=== PATIENT | male | born 1940 | race Caucasian/White ===

== ENCOUNTER 2016-08-30 10:57 | Emergency (ER) | payer MEDICARE, BC ==
[~2016-08-30] VITALS: Ht 172.7 cm; Wt 104.5 kg
[~2016-08-30 10:57] MED LIST: ASPIRIN 32325 MG/TAB PO; ASPIRIN E.C.325 MG PO; BENICAR HCT 12.1 TAB PO; CIPRO 500MG TA500 MG PO; HUMALOG100 U/ML SC; LANTUS100 U/ML; LIPITOR20 MG PO; LISINOPRIL20 MG PO; NOVOLOG 100U100 U/M1 SC; PERCOCET 325 MG1 TA2 PO; PRINIVIL20 MG PO; TOPROL XL 50MG50 MG PO; TOPROL XL50 MG PO; XALATAN EYE DROPS OU; travatan
[2016-08-30 11:02] VITALS: TEMP 98.2
[2016-08-30 11:52] LABS: BASO % 0.3 % (0.0-2.0); EOS # 0.2 (0.0-0.7); GRAN # 4.8 (1.4-6.5); GRAN % 69.6 % (42.2-75.2); HEMATOCRIT 44.1 % (42.0-52.0); HEMOGLOBIN 15.4 g/dl (13.5-18.0); LYMPH # 1.2 (1.2-3.4); LYMPH % 17.4 % (20.0-51.0); MEAN CELL VOLUME 90 fl (80.0-100.0); MEAN CORPUSCULAR HEMOGLOBIN 31 pg (27.0-31.0); MEAN CORPUSCULAR HGB CONC 35 g/dl (33.0-37.0); MEAN PLATELET VOLUME 9.8 fl (7.4-10.4); MONO # 0.7 (0.1-0.6); MONO % 9.3 % (1.7-9.3); PLATELET COUNT 151 K/mm3 (130-400); RED BLOOD COUNT 4.92 M/mm3 (4.20-5.60); REDCELL DISTRIBUTION WIDTH-CV 12.9 % (11.5-14.5)
[2016-08-30 12:01] LABS: PH 5 (5-8); SQUAMOUS EPITHELIAL None Seen /hpf; URINE APPEARANCE Hazy; URINE BACTERIA None Seen /hpf; URINE BILIRUBIN Negative (NEGATIVE); URINE BLOOD 2+ (NEGATIVE); URINE COLOR Yellow; URINE GLUCOSE 1+ (NEGATIVE); URINE KETONE Negative (NEGATIVE); URINE RBC >50 /hpf; URINE UROBILINOGEN Negative (NEGATIVE); URINE WBC 20-50 /hpf
[2016-08-30 12:13] LABS: ADJUSTED CALCIUM 9.8 mg/dL (8.4-10.2); ALANINE AMINOTRANSFERASE 30 U/L (21-72); ALBUMIN 4.1 gm/dL (3.5-5.0); ALKALINE PHOSPHATASE 70 U/L (50-136); ANION GAP 12 mmol/L (7-16); BILIRUBIN,TOTAL 1.3 mg/dL (0.0-1.0); BLOOD UREA NITROGEN 17 mg/dL (9-20); CALCIUM 9.9 mg/dL (8.4-10.2); CARBON DIOXIDE 24 mmol/L (22-30); CHLORIDE 102 mmol/L (98-107); CREATININE, serum 0.95 mg/dL (0.66-1.25); GLUCOSE 157 mg/dL (74-106); LIPASE 84 U/L (23-300); POTASSIUM 4.2 mmol/L (3.4-5.0); SODIUM 139 mmol/L (137-145); TOTAL PROTEIN 7.2 gm/dL (6.4-8.2)
[2016-08-30 12:18] LABS: C-REACTIVE PROTEIN < 0.5 mg/dL (0.0-0.9)
[2016-08-30] MEDS ORDERED: OMNICEF 300MG300 MG PO (13:58)
[2016-08-30] MEDS ORDERED: FLOMAX 0.40.4 MG/CAP PO (13:58)
[2016-08-30] MEDS ORDERED: PERCOCET 325 MG1 TA2 PO (13:58)
[2016-08-30 14:32] VITALS: BP 133/79; PULSE 72
== END 2016-08-30 14:35 | disposition home or self-care (01) ==
LOC: COL.ER 10:57
PROVIDERS: Physician Assistant
DX: N13.2 Hydronephrosis with renal and ureteral calculous obstruction (principal); Z87.442 Personal history of urinary calculi; R11.0 Nausea; E11.9 Type 2 diabetes mellitus without complications; Z79.4 Long term (current) use of insulin; I10 Essential (primary) hypertension
CPT/HCPCS: J0696; J2270; J2550; J7040

== ENCOUNTER → 2016-10-15 | Outpatient (CLI) | payer MEDICARE, BC ==
[~2016-10-15] MED LIST changes: +FLOMAX 0.40.4 MG/CAP PO; +OMNICEF 300MG300 MG PO
== END ==
LOC: COL.RAD 14:14
DX: N20.2 Calculus of kidney with calculus of ureter (principal); K44.9 Diaphragmatic hernia without obstruction or gangrene

== ENCOUNTER 2017-06-26 06:59 | Day surgery (SDC) | payer MEDICARE, BC ==
[2017-06-26] VITALS (10 sets, daily range): BP systolic 97–126; BP diastolic 55–94; PULSE 52–72; TEMP 98.2
[~2017-06-26] VITALS: Ht 170.2 cm; Wt 105.3 kg
[~2017-06-26 06:59] MED LIST changes: +ALDACTONE50 MG PO; +ASPIRIN E.C. 8181 MG PO; +COZAAR100 MG PO; +ELIQUIS 5MG PO; +HYZAAR 12.5 MG-1 TAB PO; +LANTUS100 U/ML SQ; +LASIX 20MG TABL20 MG PO; +LASIX 40MG TABL40 MG PO; +LIPITOR 40MG TA40 MG PO; +NOVOLOG 100U100 U/M1 SQ; +VITAMIN D31000 I1 PO; +ZYLOPRIM 300MG300 MG PO
[2017-06-26 07:27] LABS: HEMATOCRIT 44.4 % (42.0-52.0); HEMOGLOBIN 15.4 g/dl (13.5-18.0); MEAN CELL VOLUME 90 fl (80.0-100.0); MEAN CORPUSCULAR HEMOGLOBIN 31 pg (27.0-31.0); MEAN CORPUSCULAR HGB CONC 35 g/dl (33.0-37.0); MEAN PLATELET VOLUME 10.4 fl (7.4-10.4); PLATELET COUNT 157 K/mm3 (130-400); RED BLOOD COUNT 4.96 M/mm3 (4.20-5.60); REDCELL DISTRIBUTION WIDTH-CV 14.6 % (11.5-14.5)
[2017-06-26 07:33] LABS: INR 1.4 (0.8-3.0); PROTHROMBIN TIME 16.1 SECONDS (9.7-12.8)
[2017-06-26 07:43] LABS: CALCIUM 9.7 mg/dL (8.4-10.2); CREATININE, serum 1.15 mg/dL (0.66-1.25); POTASSIUM 4.3 mmol/L (3.4-5.0)
[2017-06-26] MEDS ORDERED: ALDACTONE50 MG PO (07:55)
[2017-06-26] MEDS ORDERED: ASPIRIN 81M81 MG/TA2 PO (07:55)
[2017-06-26] MEDS ORDERED: LASIX 40MG TABL40 MG PO (07:55)
[2017-06-26] MEDS ORDERED: TOPROL XL 50MG50 MG PO (07:56)
[2017-06-26] MEDS ORDERED: COZAAR100 MG PO (07:56)
[2017-06-26] MEDS ORDERED: LIPITOR 40MG TA40 MG PO (07:57)
[2017-06-26] MEDS ORDERED: ELIQUIS 5MG PO (07:57)
[2017-06-26] MEDS ORDERED: LOPRESSOR 550 MG/TAB PO (07:58)
[2017-06-26] MEDS ORDERED: LANTUS100 U/ML SQ (07:59)
[2017-06-26] MEDS ORDERED: NOVOLOG 100U100 U/M1 SQ (08:00)
[2017-06-26 08:14] LABS: THYROID STIMULATING HORMONE 2.51 uIU/mL (0.465-4.680)
== END 2017-06-26 11:43 | disposition home or self-care (01) ==
LOC: COL.CAR 06:59
PROVIDERS: Internal Medicine Cardiovascular Disease
DX: I48.91 Unspecified atrial fibrillation (principal); I42.0 Dilated cardiomyopathy; I10 Essential (primary) hypertension; E78.5 Hyperlipidemia, unspecified; E11.9 Type 2 diabetes mellitus without complications; I08.1 Rheumatic disorders of both mitral and tricuspid valves; Z79.01 Long term (current) use of anticoagulants; Z87.891 Personal history of nicotine dependence; Z82.49 Family history of ischemic heart disease and other diseases of the circulatory system
CPT/HCPCS: J2250; J3010; J7030

== ENCOUNTER 2017-08-14 07:05 | Inpatient (IN) | payer MEDICARE, BC ==
[2017-08-14] VITALS (14 sets, daily range): BP systolic 99–130; BP diastolic 49–87; PULSE 55–76; TEMP 97.8–98.3
[~2017-08-14] VITALS: Ht 193 cm; Wt 106.4 kg
[~2017-08-14 07:05] MED LIST changes: +ASPIRIN 81M81 MG/TA2 PO; +LOPRESSOR 550 MG/TAB PO
[2017-08-14 08:12] LABS: HEMATOCRIT 38.7 % (42.0-52.0); HEMOGLOBIN 13.5 g/dl (13.5-18.0); MEAN CELL VOLUME 92 fl (80.0-100.0); MEAN CORPUSCULAR HEMOGLOBIN 32 pg (27.0-31.0); MEAN CORPUSCULAR HGB CONC 35 g/dl (33.0-37.0); MEAN PLATELET VOLUME 10.5 fl (7.4-10.4); PLATELET COUNT 150 K/mm3 (130-400); RED BLOOD COUNT 4.19 M/mm3 (4.20-5.60); REDCELL DISTRIBUTION WIDTH-CV 15.3 % (11.5-14.5)
[2017-08-14 08:22] LABS: CALCIUM 9.2 mg/dL (8.4-10.2); CREATININE, serum 0.97 mg/dL (0.66-1.25); POTASSIUM 3.7 mmol/L (3.4-5.0)
[2017-08-14 08:26] LABS: INR 1.4 (0.8-3.0); PROTHROMBIN TIME 15.8 SECONDS (9.7-12.8)
[2017-08-15 04:15] VITALS: BP 107/51; PULSE 60; TEMP 98.6
[2017-08-15 07:45] VITALS: BP 111/57; PULSE 63; TEMP 97.9
[2017-08-15 08:36] LABS: BASO % 0.4 % (0.0-2.0); EOS # 0.2 (0.0-0.7); EOS % 3.7 % (0-4.0); GRAN # 3.8 (1.4-6.5); GRAN % 69.8 % (42.2-75.2); HEMOGLOBIN 12.5 g/dl (13.5-18.0); LYMPH % 18.7 % (20.0-51.0); MEAN CELL VOLUME 93 fl (80.0-100.0); MEAN CORPUSCULAR HEMOGLOBIN 32 pg (27.0-31.0); MEAN CORPUSCULAR HGB CONC 35 g/dl (33.0-37.0); MEAN PLATELET VOLUME 10.4 fl (7.4-10.4); MONO # 0.4 (0.1-0.6); PLATELET COUNT 135 K/mm3 (130-400); RED BLOOD COUNT 3.87 M/mm3 (4.20-5.60); REDCELL DISTRIBUTION WIDTH-CV 15.2 % (11.5-14.5)
[2017-08-15 08:38] LABS: HEMATOCRIT 35.8 % (42.0-52.0)
[2017-08-15 08:50] LABS: CALCIUM 8.8 mg/dL (8.4-10.2); CREATININE, serum 0.87 mg/dL (0.66-1.25); POTASSIUM 3.9 mmol/L (3.4-5.0)
[2017-08-15 11:24] VITALS: BP 111/59; PULSE 57; TEMP 98.4
[2017-08-15 16:40] VITALS: BP 110/56; PULSE 53; TEMP 98.5
[2017-08-15 19:27] VITALS: BP 112/56; BP 143/81; PULSE 55; PULSE 97; TEMP 98; TEMP 99
[2017-08-15 23:43] VITALS: BP 104/46; PULSE 50; TEMP 98.2
[2017-08-16 03:30] VITALS: BP 92/48; PULSE 50; TEMP 97.8
[2017-08-16 06:54] LABS: BASO % 0.3 % (0.0-2.0); EOS # 0.3 (0.0-0.7); EOS % 3.9 % (0-4.0); GRAN # 4.7 (1.4-6.5); GRAN % 69.7 % (42.2-75.2); HEMATOCRIT 38.9 % (42.0-52.0); HEMOGLOBIN 13.3 g/dl (13.5-18.0); LYMPH # 1.2 (1.2-3.4); MEAN CELL VOLUME 94 fl (80.0-100.0); MEAN CORPUSCULAR HEMOGLOBIN 32 pg (27.0-31.0); MEAN CORPUSCULAR HGB CONC 34 g/dl (33.0-37.0); MEAN PLATELET VOLUME 10.5 fl (7.4-10.4); MONO # 0.5 (0.1-0.6); MONO % 7.7 % (1.7-9.3); PLATELET COUNT 151 K/mm3 (130-400); RED BLOOD COUNT 4.16 M/mm3 (4.20-5.60); REDCELL DISTRIBUTION WIDTH-CV 15.2 % (11.5-14.5)
[2017-08-16 07:08] LABS: CALCIUM 9.1 mg/dL (8.4-10.2); CREATININE, serum 0.95 mg/dL (0.66-1.25); MAGNESIUM 1.8 mg/dL (1.6-2.3); POTASSIUM 3.8 mmol/L (3.4-5.0)
[2017-08-16 07:44] VITALS: BP 103/53; PULSE 65; TEMP 97.7
[2017-08-16 12:00] VITALS: BP 117/70; PULSE 52; TEMP 98.2
[2017-08-16 15:36] VITALS: BP 122/65; PULSE 51; TEMP 98
[2017-08-16 19:52] VITALS: BP 108/55; PULSE 49; TEMP 98.3
[2017-08-17 00:06] VITALS: BP 108/47; PULSE 50; TEMP 97.9
[2017-08-17 03:59] VITALS: BP 112/52; PULSE 51; TEMP 97.7
[2017-08-17 06:55] LABS: BASO % 0.3 % (0.0-2.0); EOS # 0.2 (0.0-0.7); EOS % 3.8 % (0-4.0); GRAN # 3.9 (1.4-6.5); GRAN % 64.7 % (42.2-75.2); HEMOGLOBIN 12.7 g/dl (13.5-18.0); LYMPH # 1.3 (1.2-3.4); LYMPH % 21.5 % (20.0-51.0); MEAN CELL VOLUME 92 fl (80.0-100.0); MEAN CORPUSCULAR HEMOGLOBIN 32 pg (27.0-31.0); MEAN CORPUSCULAR HGB CONC 35 g/dl (33.0-37.0); MONO # 0.6 (0.1-0.6); MONO % 9.4 % (1.7-9.3); PLATELET COUNT 126 K/mm3 (130-400); RED BLOOD COUNT 3.97 M/mm3 (4.20-5.60)
[2017-08-17 07:09] LABS: HEMATOCRIT 36.7 % (42.0-52.0)
[2017-08-17 07:11] LABS: CALCIUM 8.9 mg/dL (8.4-10.2); CREATININE, serum 1.01 mg/dL (0.66-1.25); MAGNESIUM 1.8 mg/dL (1.6-2.3); POTASSIUM 3.6 mmol/L (3.4-5.0)
[2017-08-17 07:29] VITALS: BP 118/70; PULSE 59; TEMP 97.9
[2017-08-17 11:43] VITALS: BP 105/58; PULSE 50; TEMP 98.1
[2017-08-17 15:05] VITALS: BP 104/56; PULSE 45; TEMP 99.2
[2017-08-17 19:36] VITALS: BP 97/50; PULSE 50; TEMP 98.1
[2017-08-18 00:50] VITALS: PULSE 52
[2017-08-18 06:00] VITALS: BP 136/67; PULSE 56; TEMP 98.6
[2017-08-18 06:57] LABS: BASO % 0.3 % (0.0-2.0); EOS # 0.2 (0.0-0.7); GRAN # 3.6 (1.4-6.5); GRAN % 63.5 % (42.2-75.2); HEMOGLOBIN 12.9 g/dl (13.5-18.0); LYMPH # 1.2 (1.2-3.4); LYMPH % 21.6 % (20.0-51.0); MEAN CELL VOLUME 91 fl (80.0-100.0); MEAN CORPUSCULAR HEMOGLOBIN 32 pg (27.0-31.0); MEAN CORPUSCULAR HGB CONC 35 g/dl (33.0-37.0); MEAN PLATELET VOLUME 10.7 fl (7.4-10.4); MONO # 0.6 (0.1-0.6); MONO % 10.1 % (1.7-9.3); PLATELET COUNT 134 K/mm3 (130-400); RED BLOOD COUNT 4.01 M/mm3 (4.20-5.60); REDCELL DISTRIBUTION WIDTH-CV 14.9 % (11.5-14.5)
[2017-08-18 07:09] LABS: HEMATOCRIT 36.6 % (42.0-52.0)
[2017-08-18 07:43] LABS: MAGNESIUM 1.8 mg/dL (1.6-2.3); POTASSIUM 3.5 mmol/L (3.4-5.0)
[2017-08-18 07:52] VITALS: BP 112/56; PULSE 50; TEMP 97.7
[2017-08-18] MEDS ORDERED: CORDARONE200 MG/TAB PO (09:57)
== END 2017-08-18 10:56 | disposition home or self-care (01) | DRG 309 ==
LOC: COL.CAR 07:05 → MEDICAL 12:50 → COL.CAR 13:51 → MEDICAL 13:51
PROVIDERS: Internal Medicine Cardiovascular Disease; Nurse Practitioner
PROC: 5A2204Z Restoration of Cardiac Rhythm, Single (ICD-10-PCS; principal; 2017-08-14)
DX: I48.2 Chronic atrial fibrillation (principal); I50.22 Chronic systolic (congestive) heart failure; I51.3 Intracardiac thrombosis, not elsewhere classified; I11.0 Hypertensive heart disease with heart failure; E11.9 Type 2 diabetes mellitus without complications; I25.10 Atherosclerotic heart disease of native coronary artery without angina pectoris; Z95.5 Presence of coronary angioplasty implant and graft; Z87.891 Personal history of nicotine dependence; I42.0 Dilated cardiomyopathy; I08.0 Rheumatic disorders of both mitral and aortic valves
CPT/HCPCS: G9654; J1815; J2704; J7030

== ENCOUNTER → 2018-03-25 | Outpatient (CLI) | payer MEDICARE, BC ==
[~2018-03-25] MED LIST changes: +ALDACTONE 25MG25 M1 PO; +CORDARONE200 MG/TAB PO; -VITAMIN D31000 I1 PO; +VITAMIND3 5000 PO
== END ==
LOC: SUN.DIA 08:34
DX: E11.9 Type 2 diabetes mellitus without complications (principal); E78.5 Hyperlipidemia, unspecified; I10 Essential (primary) hypertension; E66.9 Obesity, unspecified

== ENCOUNTER → 2018-05-06 | Outpatient (CLI) | payer MEDICARE, BC | LOC: SUN.DIA 08:40 | DX: E11.9 Type 2 diabetes mellitus without complications (principal); E78.5 Hyperlipidemia, unspecified; I10 Essential (primary) hypertension; E66.9 Obesity, unspecified | CPT/HCPCS: G0108 ==

== ENCOUNTER → 2018-07-09 | Outpatient (CLI) | payer MEDICARE, BC | LOC: COL.RAD 14:06 | DX: C20 Malignant neoplasm of rectum (principal); C78.7 Secondary malignant neoplasm of liver and intrahepatic bile duct; R94.5 Abnormal results of liver function studies; R59.0 Localized enlarged lymph nodes | CPT/HCPCS: Q9967 ==